=== PATIENT | female | born 1985 | race Caucasian/White ===

== ENCOUNTER 2019-06-03 00:22 | Emergency (ER) | payer MEDICAID ==
[~2019-06-03] VITALS: Ht 167.6 cm; Wt 95.3 kg
[2019-06-03 00:30] VITALS: BP 120/89
--- NOTE | 2019-06-03 00:34 | NUR ---
TO LOBBY A/W BED, AMBULATORY
--- NOTE | 2019-06-03 01:01 | NUR ---
PT AMBULATED TO ER BED 12
--- NOTE | 2019-06-03 01:25 | NUR ---
33 YO F BIB SELF PRESENTS TO ED C/O 07/31 EPIGASTRIC CHEST PAIN X 7 HOURS. PT STATES SHE WAS AT HOME WATCHING TV WHEN THE PAIN CAME OUT OF NOWHERE. PT REPORTS OFF AND ON NAUSEA, NO VOMITING. DENIES SOB. -- PT AWAKE, ALERT, CALM COOPERATIVE. APPEARS TO BE IN PAIN; GRIMACING, RUBBING AFFECTED AREA. -- SKIN PINK, WARM, DRY. BREATHING EVEN, UNLABORED. VSS. PMH-- DENIES RX-- TYLENOL AT 1900 FOR PAIN; NOT EFFECTIVE.
--- NOTE | 2019-06-03 01:40 | NUR ---
LAB AT BEDSIDE.
[2019-06-03 01:58] LABS: APPEARANCE,URINE HAZY (CLEAR); BILIRUBIN,URINE 1+ (NEGATIVE); BLOOD, URINE NEGATIVE (NEGATIVE); COLOR,URINE YELLOW (YELLOW); LEUKOCYTE ESTERASE ,URINE NEGATIVE (NEGATIVE); NITRITE, URINE NEGATIVE (NEGATIVE); UGLUCOSE NEGATIVE (NEGATIVE)
[2019-06-03 02:10] LABS: RBC,URINE 0-5 /HPF (0-5)
[2019-06-03] MEDS ORDERED: DICYCLOMINE 20 MG/2 ML VIAL IM ONE (02:25)
[2019-06-03] MEDS ORDERED: FAMOTIDINE 20 MG/2 ML VIAL IVP ONE (02:25)
[2019-06-03] MEDS ORDERED: ALUMINUM HYD/MAG/SIMETHICONE 30 ML UDC PO ONE (02:25)
[2019-06-03] MEDS ORDERED: LIDOCAINE VISCOUS 2% 20 ML UDC PO ONE (02:25)
--- NOTE | 2019-06-03 02:30 | NUR ---
Patient appears to be resting comfortably in bed. Vital Signs within normal limits. Respirations even and unlabored. Skin pink, warm, dry.
[2019-06-03 02:43] LABS: BASOPHILS % (AUTO) 0.2 % (0.0-2.0); EOSINOPHILS # (AUTO) 0.1 K/uL (0-0.4); EOSINOPHILS % (AUTO) 1.5 % (0.0-4.0); HEMATOCRIT 31.1 % (36-48); HEMOGLOBIN 10.1 g/dL (12.0-16.0); LYMPHOCYTES # (AUTO) 1.8 K/uL (2.5-16.5); LYMPHOCYTES % (AUTO) 24.5 % (20.5-51.1); MEAN CORPUSCULAR HEMOGLOBIN 25 pg (27-31); MEAN CORPUSCULAR HGB CONC 33 g/dL (33-37); MEAN CORPUSCULAR VOLUME 76.4 fL (80-94); MONOCYTES # (AUTO) 0.6 K/uL (0.8-1.0); NEUTROPHILS # (AUTO) 4.8 K/uL (1.8-7.7); NEUTROPHILS % (AUTO) 65.8 % (42.2-75.2); PLATELET COUNT (AUTO) 161 K/uL (140-450); RED BLOOD CELL COUNT(AUTO) 4.07 MIL/uL (4.20-5.40); RED CELL DISTRIBUTION WIDTH 16.8 % (11.6-13.7); WHITE BLOOD COUNT (AUTO) 7.4 K/uL (4.8-10.8)
[2019-06-03 02:52] LABS: ANION GAP 11.1 (8-16); CARBON DIOXIDE 28.7 mmol/L (21-32); CREATININE 0.8 mg/dL (0.6-1.3); POTASSIUM 3.8 mmol/L (3.5-5.1)
[2019-06-03 02:58] LABS: ALBUMIN 3.1 g/dL (3.4-5.0); TOTAL BILIRUBIN 0.2 mg/dL (0.0-1.0)
--- NOTE | 2019-06-03 03:30 | NUR ---
Patient appears to be resting comfortably in bed. Vital Signs within normal limits. Respirations even and unlabored. Skin pink, warm, dry.
[2019-06-03 04:50] VITALS: BP 114/53
== END 2019-06-03 04:50 | disposition home or self-care (01) ==
LOC: MED 00:22
DX: N39.0 Urinary tract infection, site not specified (principal); R07.2 Precordial pain
CPT/HCPCS: 36415; 80053; 81001; 81025; 83690; 84484; 85025; 87086; 93005; 96372; 96374; 99284; J0500; J3490